=== PATIENT | female | born 2000 | race Two or more races ===

== ENCOUNTER 2023-11-25 08:44 | Emergency (ER) | payer OTHER ==
[~2023-11-25] VITALS: Ht 172.7 cm; Wt 59.0 kg
[2023-11-25] MEDS ORDERED: KETOROLAC TROMETHAMINE 60 MG VIAL IM STA (09:44)
== END 2023-11-25 10:44 | disposition home or self-care (01) ==
LOC: ER 08:44
DX: S83.206A Unspecified tear of unspecified meniscus, current injury, right knee, initial encounter (principal); X58.XXXA Exposure to other specified factors, initial encounter; Y93.68 Activity, volleyball (beach) (court); Y92.89 Other specified places as the place of occurrence of the external cause; Y99.9 Unspecified external cause status

== ENCOUNTER 2023-11-27 10:54 | Outpatient (CLI) | payer OTHER | END 2023-11-27 11:00 | disposition home or self-care (01) | LOC: MRI 10:54 | PROVIDERS: ATTEND Orthopaedic Surgery | DX: M22.02 Recurrent dislocation of patella, left knee (principal) | CPT/HCPCS: 73721 ==